=== PATIENT | male | born 1975 | race Caucasian/White ===

== ENCOUNTER → 2022-09-25 | Outpatient (CLI) | payer BC ==
[~2022-09-25] MED LIST: ASPI325; CYCL10 PO; HYDACE5; HYDACE5 PO; NAPR550 PO; OLME20; OLME40 PO; RXCYCL10 PO
== END ==
LOC: PLD 11:24 → LAB SHORT 11:24
DX: D48.5 Neoplasm of uncertain behavior of skin (principal)
CPT/HCPCS: 88305